=== PATIENT | male | born 1990 | race Caucasian/White ===

== ENCOUNTER 2019-08-23 10:51 | Emergency (ER) | payer BC ==
--- NOTE | 2019-08-23 11:23 | UC ---
Skin Complaint HPI - HPI Summary HPI Summary: 29 yo male presents with rash. He tells me that for the last 2 weeks he has had a very itchy red spotty rash to his wrists, fingers, and groin. Itch is worse at night and sometimes wakes him up. Has not been spreading. Feels well otherwise and denies fever, chills, sore throat, recent illness, n/v. He has not tried anything OTC for his symptoms. No recent change in living environment , bedding, or clothing. - History of Current Complaint Time Seen by Provider: 08/23/19 11:23 Stated Complaint: RASH Hx Obtained From: Patient Onset/Duration: Sudden Onset Onset Severity: Mild Current Severity: Moderate Pain Intensity: 5 Pain Scale Used: 0-10 Numeric - Allergy/Home Medications Allergies/Adverse Reactions: Allergies Allergy/AdvReac Type Severity Reaction Status Date / Time No Known Allergies Allergy Verified 08/23/19 11:17 PMH/Surg Hx/FS Hx/Imm Hx - Additional Past Medical History Additional PMH: None - Surgical History Surgical History: None - Family History Known Family History: Positive: None - Social History Occupation: Employed Full-time Lives: With Family Alcohol Use: None Substance Use Type: None Smoking Status (MU): Never Smoked Tobacco Review of Systems All Other Systems Reviewed And Are Negative: No Constitutional: Positive: Negative Skin: Positive: Rash Respiratory: Positive: Negative Cardiovascular: Positive: Negative Neurovascular: Positive: Negative Neurological: Positive: Negative Psychological: Positive: Negative Physical Exam - Summary Physical Exam Summary: GENERAL: NAD. WDWN. No pain distress. SKIN: B/l hands and wrists with multiple small, erythematous papules, excoriated. Groin, mons pubis, and penis with similar appearing excoriated papules. NECK: Supple. Nontender. No lymphadenopathy. CHEST: No accessory muscle use. Breathing comfortably and in no distress. CV: Pulses intact. Cap refill <2seconds NEURO: Alert. PSYCH: Age appropriate behavior. Triage Information Reviewed: Yes Vital Signs: Vital Signs: Temp Pulse Resp BP Pulse Ox 98.6 F 84 18 113/77 97 08/23/19 11:18 08/23/19 11:18 08/23/19 11:18 08/23/19 11:18 08/23/19 11:18 Vital Signs Reviewed: Yes Course/Dx - Course Course Of Treatment: Suspect scabies. Will rx for permethrin and have him f/u for a recheck if symptoms do not resolve with treatment. Advised to throughout was all bedding and clothing items. - Diagnoses Provider Diagnosis: Scabies Discharge ED - Sign-Out/Discharge Documenting (check all that apply): Patient Departure All imaging exams completed and their final reports reviewed: No Studies - Discharge Plan Condition: Stable Disposition: HOME Prescriptions: Permethrin 5% CREAM* 1 applic TOPICAL SEE INSTRUCTIONS #30 gm Patient Education Materials: Scabies (ED) Referrals: No Primary Care Phys,NOPCP [Primary Care Provider] - Additional Instructions: If you develop a fever, shortness of breath, chest pain, new or worsening symptoms - please call your PCP or go to the ED immediately. Administration Patients should massage permethrin cream thoroughly into the skin from the neck to the soles of the feet, including areas under the fingernails and toenails. In young children, scalp involvement is common. Therefore, permethrin should also be applied to the scalp and face (sparing the eyes and mouth) in this population. Permethrin should be removed by washing ( shower or bath) after 8 to 14 hours. Treatment is often performed overnight. - Billing Disposition and Condition Condition: STABLE Disposition: Home
== END 2019-08-23 11:53 | disposition home or self-care (01) ==
LOC: UCEAST 10:51
DX: B86 Scabies (principal)
CPT/HCPCS: 99202; G0463